=== PATIENT | male | born 2000 | race Caucasian/White ===

== ENCOUNTER 2020-01-10 01:47 | Emergency (ER) | payer SELFPAY ==
[2020-01-10] MEDS ORDERED: Adacel (T-DAP) 0.5 ML SYRINGE ONE (01:55)
[2020-01-10] MEDS ORDERED: Morphine 4 MG/ML VIAL ONE (02:01)
[2020-01-10] MEDS ORDERED: CEFAZOLIN 1 GM VIAL ONE (02:01)
[2020-01-10] MEDS ORDERED: Sodium Chloride 0.9% 1,000 ML ONE (02:01)
[2020-01-10] MEDS ORDERED: Ondansetron PF 4 MG/2 ML Vial ONE (02:01)
[2020-01-10 02:10] LABS: #Basophils 0.2 thou/uL (0.0-0.2); #Eosinphils 0.3 thou/uL (0.0-0.7); #Lymphocytes 4.3 thou/uL (1.20-3.40); #Monocytes 0.8 thou/uL (0.11-0.59); #Neutrophils 5.3 thou/uL (1.40-6.50); %Basophils 1.6 % (0.0-1.0); %Eosinophils 2.4 % (0.0-10.0); %Lymphocytes 40.1 % (21.0-51.0); %Monocytes 7.1 % (0.0-10.0); %Neutrophils 48.7 % (42.0-75.0); Hemoglobin 13.9 g/dL (14.0-18.0); Mean Corpuscular HGB CONC 32.7 g/dL (32.0-36.0); Mean Corpuscular Hemoglobin 31.2 pg (27.0-31.0); Mean Corpuscular Volume 95.3 fL (78.0-98.0); Mean Platelet Volume 9.4 fL (7.4-10.4); Platelet Count 259 thou/uL (130-400); Red Blood Cell (RBC) Count 4.45 mill/uL (4.70-6.10); White Blood Cell (WBC) Count 10.8 thou/uL (4.8-10.8)
[2020-01-10 02:28] LABS: ALT (SGPT) 15 U/L (8-55); AST (SGOT) 16 U/L (5-34); Albumin 4.9 g/dL (3.5-5.0); Alkaline Phosphatase 41 U/L (40-110); Anion Gap 17 mmol/L (10-20); BUN (Urea Nitrogen) 11 mg/dL (8.9-20.6); Bilirubin, Total 0.9 mg/dL (0.2-1.2); Calc. Creatinine Clearance 0 mL/min (70-130); Calcium 9.3 mg/dL (7.8-10.44); Carbon Dioxide 22 mmol/L (22-29); Chloride 104 mmol/L (98-107); Estimated GFR-MDRD 72; Glucose 135 mg/dL (70-105); Potassium 3.2 mmol/L (3.5-5.1); Protein, Total 7.9 g/dL (6.0-8.3); Sodium 140 mmol/L (136-145)
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
== END 2020-01-10 02:52 | disposition short-term general hospital (02) ==
LOC: NAV ERS 01:47
DX: S62.615B Displaced fracture of proximal phalanx of left ring finger, initial encounter for open fracture (principal); Z23 Encounter for immunization; F17.210 Nicotine dependence, cigarettes, uncomplicated; F17.290 Nicotine dependence, other tobacco product, uncomplicated; W34.00XA Accidental discharge from unspecified firearms or gun, initial encounter
CPT/HCPCS: 36415; 80053; 85025; 90471; 90715; 96365; 96375; J0690; J2270; J2405; J7050